=== PATIENT | female | born 1985 | race Caucasian/White ===

== ENCOUNTER 2020-07-31 11:21 | Emergency (ER) | payer MEDICAID, OTHER ==
[~2020-07-31] VITALS: Ht 162.6 cm; Wt 68.0 kg
[2020-07-31 11:29] VITALS: BP 109/61
--- NOTE | 2020-07-31 11:31 | NUR ---
AT BEDSIDE FOR EVAL.
[2020-07-31] MEDS ORDERED: IBUPROFEN 600 MG TABLET ONE (11:39)
--- NOTE | 2020-07-31 11:40 | NUR ---
Patient discharged to home in stable condition. Written and verbal after care instructions given. Patient verbalizes understanding of instruction.
== END 2020-07-31 11:41 | disposition home or self-care (01) ==
LOC: ER 11:30
DX: S03.42XA Sprain of jaw, left side, initial encounter (principal); W18.39XA Other fall on same level, initial encounter; Y93.89 Activity, other specified; Y92.89 Other specified places as the place of occurrence of the external cause; Y99.8 Other external cause status